=== PATIENT | female | born 1930 | race Native Hawaiian/Other Pacific Islander ===

== ENCOUNTER 2019-01-02 20:33 | Inpatient (IN) | payer OTHER, MEDICARE ==
[2019-01-02] MEDS ORDERED: IPRATROPIUM/ALBUTEROL 3 ML DEYVIAL ONE (20:52)
[2019-01-02] MEDS ORDERED: IPRATROPIUM/ALBUTEROL 3 ML DEYVIAL IH ONE (20:54)
[2019-01-02 21:59] LABS: PLATELET COUNT 196 10^3/uL (150-400)
[2019-01-02 22:07] LABS: INR 1.07 (0.83-1.16); PROTIME(PATIENT) 13.5 SEC (12.0-15.0)
--- NOTE | 2019-01-02 22:16 | EDPHY ---
H & P Time Seen by Provider: 01/02/19 20:58 HPI/ROS: HPI Short of breath. 88-year-old female by private vehicle with her daughter. This patient reports that for the last 5 days she has noticed worsening shortness of breath. She reports that this is worse with exertion. She has not had any associated chest pain. No cough. No upper respiratory symptoms. She has no history of asthma or reactive airway disease. No history of congestive heart failure. She denies any unilateral leg pain or swelling. She has not had a fever. No palpitations. ROS: Constitutional: No fever, no chills. No weakness. Eyes: No discharge. No changes in vision. ENT: No sore throat. No nasal congestion or rhinorrhea. Respiratory: No cough. As above. Cardiac: No chest pain, no palpitations. Gastrointestinal: No abdominal pain, no vomiting, no diarrhea. Genitourinary: No hematuria. No dysuria or increased frequency with urination. Musculoskeletal: No back pain. No neck pain. No myalgias or arthralgias. Skin: No rashes. Neurological: No headache. No focal weakness or altered sensation. Past medical history: Double mastectomy, hypertension, ischemic heart disease, pulmonary hypertension, mitral valve disease, gout. Social history: Nonsmoker. She is here with her daughter. She lives several houses down from her daughter. No alcohol. Physical Exam: General Appearance: Alert, she is not in distress. This patient is responding to questions appropriately and in full sentences. This patient appears well- hydrated and well-nourished. Eyes: Pupils equal and round no pallor or injection. No lid edema, erythema or injection. Respiratory: There are no retractions, lungs are clear to auscultation anteriorly, diminished at the bases, otherwise with good air movement bilaterally. No tachypnea. Cardiovascular: Regular rate and rhythm. No murmur appreciated. Gastrointestinal: Abdomen is soft and nontender, no masses, bowel sounds normal. No focal tenderness at McBurney's point. No Dyson sign. Neurological: Motor sensory function is grossly intact. Cranial nerves are normal. Gait is normal. Skin: Warm and dry, no rashes. Musculoskeletal: Neck is supple and nontender. Extremities are symmetrical. All joints range without pain or impingement. Psychiatric: No agitation. No depression. Database: EKG: EKG time is 9:12 p.m.; EKG shows a sinus rhythm with ventricular rate of 87. There is an underlying left bundle branch block with appropriate discordance. The OH, QRS, QT intervals are within normal limits. There are no ST-T wave changes indicative of ischemic or injury pattern. No evidence of right heart strain. Interpreted by me. Imaging: AP portable chest x-ray: Cardiomegaly which appears stable. No infiltrate. No pneumothorax. No acute cardiopulmonary disease process noted. Procedures: Emergency department course: Triage vital signs reviewed, she is mildly hypertensive. Vital signs are otherwise unremarkable. Pulse oximetry is 93% on room air in triage. She is afebrile. IV placed. She was placed on a registered nurse cardiac. EKG obtained and reviewed by myself. She was given a DuoNeb from triage. She felt better after this. She does not have significant wheezing. She does have diminished breath sounds at the bilateral bases and mid lung [place]. Strong family history of asthma. No personal history of reactive airway disease. 10:45 p.m., results of diagnostic workup discussed with the patient and her mother. I explained we would admit the patient overnight for observation by the hospitalist service. Her daughter currently does not feel comfortable taking her home. I explained to the 2 of them that her diagnostic workup has been reassuring. All of their questions were answered. 11:00 p.m., case discussed with hospitalist Dr. Alicia. Case discussed in detail with him. He accepts this patient for observation admission and further evaluation with the hospitalist service. The patient's remaining emergency department course under my care has been uneventful. She was admitted in stable condition. Differential Diagnosis: The differential diagnosis on this patient includes but is not limited to pulmonary hypertension, congestive heart failure, reactive airway disease, pulmonary embolism, acute coronary syndrome. This represents a partial list of diagnoses considered. These considerations are based on history, physical exam , past history, reassessment and diagnostic testing. Smoking Status: Former smoker Constitutional: Initial Vital Signs Temperature (C) 36.5 C 01/02/19 20:36 Heart Rate 97 01/02/19 20:36 Respiratory Rate 18 01/02/19 20:36 Blood Pressure 151/65 H 01/02/19 20:36 O2 Sat (%) 93 01/02/19 20:36 O2 Delivery Mode Nasal Cannula O2 (L/minute) 2 Allergies/Adverse Reactions: Penicillins Allergy (Severe, Verified 01/02/19 20:41) venom-honey bee [bee venom (honey bee)] Allergy (Severe, Verified 01/02/19 20:41 ) codeine Allergy (Verified 01/02/19 20:41) Home Medications: Medication Instructions Recorded Allopurinol [Allopurinol 100 MG 200 mg PO DAILY 02/23/12 (*)] Simvastatin [Zocor 10 mg] 10 mg PO HS 02/23/12 Aspirin [Aspirin 81mg (*)] 81 mg PO SUTUWETHSA@08 11/13/15 Herbals/Supplements -Info Only 1 ea PO DAILY 11/13/15 C/E/Zn/Cu/OM3/DHA/EPA/LUT/ZEAX 1 each PO DAILY 01/03/19 [Preservision Areds 2 Softgel] C/E/Zn/Cu/OM3/DHA/EPA/LUT/ZEAX 1 each PO MOWEFR@01/03/19 [Preservision Areds 2 Softgel] Carboxymethylcellulose 1% [Refresh 1 - 2 drop EACHEYE Q4H PRN 01/03/19 Celluvisc (*)] Ibuprofen [Motrin (*)] 200 - 400 mg PO Q8H PRN 01/03/19 Medical Decision Making - Data Points Laboratory Results: Laboratory Results 01/03/19 04:07 01/03/19 04:07 01/03/19 01/03/19 04:07 04:07 WBC 5.67 10^3/uL 10^3/uL (3.80-9.50) RBC 4.03 10^6/uL L 10^6/uL (4.18-5.33) Hgb 12.4 g/dL L g/dL (12.6-16.3) Hct 37.7 % L % (38.0-47.0) MCV 93.5 fL fL (81.5-99.8) MCH 30.8 pg pg (27.9-34.1) MCHC 32.9 g/dL g/dL (32.4-36.7) RDW 13.6 % % (11.5-15.2) Plt Count 166 10^3/uL 10^3/uL (150-400) MPV 9.3 fL fL (8.7-11.7) Neut % (Auto) 64.6 % % (39.3-74.2) Lymph % (Auto) 24.2 % % (15.0-45.0) [place] % (Auto) 8.3 % % (4.5-13.0) Eos % (Auto) 2.3 % % (0.6-7.6) Baso % (Auto) 0.2 % L % (0.3-1.7) Nucleat RBC Rel Count 0.0 % % (0.0-0.2) Absolute Neuts (auto) 3.67 10^3/uL 10^3/uL (1.70-6.50) Absolute Lymphs (auto) 1.37 10^3/uL 10^3/uL (1.00-3.00) Absolute Monos (auto) 0.47 10^3/uL 10^3/uL (0.30-0.80) Absolute Eos (auto) 0.13 10^3/uL 10^3/uL (0.03-0.40) Absolute Basos (auto) 0.01 10^3/uL L 10^3/uL (0.02-0.10) Absolute Nucleated RBC 0.00 10^3/uL 10^3/uL (0-0.01) Immature Gran % 0.4 % % (0.0-1.1) Immature Gran # 0.02 10^3/uL 10^3/uL (0.00-0.10) Sodium 139 mEq/L mEq/L (135-145) Potassium 3.5 mEq/L mEq/L (3.5-5.2) Chloride 111 mEq/L H mEq/L (97-110) Carbon Dioxide 23 mEq/l mEq/l (22-31) Anion Gap 5 mEq/L L mEq/L (6-14) BUN 16 mg/dL mg/dL (7-23) Creatinine 0.5 mg/dL L mg/dL (0.6-1.0) Estimated GFR > 60 Glucose 90 mg/dL mg/dL (70-100) Calcium 8.3 mg/dL L mg/dL (8.5-10.4) Medications Given: Enoxaparin Sodium (Lovenox) 30 mg SC DAILY JASON Stop: 07/02/19 08:59 Last Admin: 01/03/19 09:36 Dose: 30 mg Discontinued Medications Albuterol/Ipratropium (Duoneb) 3 ml IH EDNOW ONE Stop: 01/02/19 20:55 Last Admin: 01/02/19 20:55 Dose: 3 ml Furosemide (Lasix Injection) 20 mg IVP ONCE ONE Stop: 01/03/19 13:11 Last Admin: 01/03/19 15:05 Dose: 20 mg Point of Care Test Results: Chemistry 01/02/19 21:53 POC Troponin I 0.02 ng/mL ng/mL (0.00-0.08) Departure - Departure Disposition: [facility] Inpatient Acute Clinical Impression: Dyspnea
[2019-01-02] MEDS ORDERED: ONDANSETRON 4 MG/2 ML VIAL IVP PRN (22:59)
[2019-01-02] MEDS ORDERED: ONDANSETRON DISINTEGRATING 4 MG TAB PO PRN (22:59)
[2019-01-02] MEDS ORDERED: ALBUTEROL 3 ML DEYVIAL IH PRN (22:59)
--- NOTE | 2019-01-03 00:01 | PDGENHP ---
History and Physical - Chief Complaint Dyspnea - History of Present Illness 88 yo F w/ hx of gout presents with dyspnea. The patient tells me she "always wheezes" but that this usually does not affect her ability to exercise. A few weeks ago she had a fairly significant cold. These symptoms have improved but over the last 4 or 5 days she has noted significant dyspnea on exertion, even with mild exertion such as putting on he shoes. She denies chest pain. She tells me she feels much better after nebulizer treatment received in the ED. Work-up in the ED mostly unremarkable including D-dimer negative by age adjusted cutoff. She is being admitted for observation. Case discussed with ED physician Dr. Stacy; records reviewed and summarized above. History Information - Allergies/Home Medication List Allergies/Adverse Reactions: Penicillins Allergy (Severe, Verified 01/02/19 20:41) venom-honey bee [bee venom (honey bee)] Allergy (Severe, Verified 01/02/19 20:41 ) codeine Allergy (Verified 01/02/19 20:41) Home Medications: Allopurinol [Allopurinol 100 MG (*)] 200 mg PO DAILY 02/23/12 [Last Taken Unknown] Simvastatin [Zocor 10 mg] 10 mg PO DAILY 02/23/12 [Last Taken Unknown] Aspirin [Aspirin 81mg (*)] 81 mg PO SUMOWEFR@11/13/15 [Last Taken 11/20/15] Cholecalciferol (Vitamin D3) [Vitamin D3] 5,000 unit PO DAILY 11/13/15 [Last Taken 11/20/15] Herbals/Supplements -Info Only 1 ea PO DAILY 11/13/15 [Last Taken 11/20/15] Multivitamins [Multivitamin (*)] 1 each PO DAILY 11/13/15 [Last Taken 11/20/15] Tears/Hypromellose [Natural Balance] 1 - 2 drops EACHEYE Q4 PRN 11/13/15 [Last Taken 11/27/15] Vit C/Dl-E AC/Lut/Copper/Znox [Preservision Softgel] 1 each PO MOTH@11/13/15 [Last Taken 11/20/15] I have personally reviewed and updated: family history, medical history - Past Medical History hyperlipidemia Additional medical history: Gout. DCIS - Surgical History Additional surgical history: Lumpectomy - Family History Positive for: asthma (Daughter and granddaughters) - Social History Smoking Status: Former smoker Review of Systems Review of Systems: ROS: 10pt was reviewed & negative except for what was stated in HPI & below Physical Exam Physical Exam: Temp Pulse Resp BP Pulse Ox 36.5 C 86 16 126/53 H 96 01/02/19 20:36 01/02/19 22:58 01/02/19 22:58 01/02/19 22:58 01/02/19 23:00 O2 (L/minute) 2 Constitutional: no apparent distress, not in pain Eyes: PERRL, EOMI Ears, Nose, Mouth, Throat: moist mucous membranes, no oral mucosal ulcers Cardiovascular: regular rate and rhythym, no murmur, rub, or gallop Respiratory: no respiratory distress, no rales or rhonchi Gastrointestinal: normoactive bowel sounds, soft, non-tender abdomen Skin: warm, normal color Musculoskeletal: full muscle strength, no muscle tenderness Neurologic: AAOx3, CN II-XII Intact Psychiatric: interacting appropriately, not anxious Lab Data & Imaging Review 01/02/19 21:48 01/02/19 21:48 WBC 8.04 10^3/uL (3.80-9.50) 01/02/19 21:48 RBC 4.51 10^6/uL (4.18-5.33) 01/02/19 21:48 Hgb 14.3 g/dL (12.6-16.3) 01/02/19 21:48 Hct 43.3 % (38.0-47.0) 01/02/19 21:48 MCV 96.0 fL (81.5-99.8) 01/02/19 21:48 MCH 31.7 pg (27.9-34.1) 01/02/19 21:48 MCHC 33.0 g/dL (32.4-36.7) 01/02/19 21:48 RDW 13.5 % (11.5-15.2) 01/02/19 21:48 Plt Count 196 10^3/uL (150-400) 01/02/19 21:48 MPV 9.6 fL (8.7-11.7) 01/02/19 21:48 Neut % (Auto) 67.4 % (39.3-74.2) 01/02/19 21:48 Lymph % (Auto) 24.9 % (15.0-45.0) 01/02/19 21:48 [place] % (Auto) 6.2 % (4.5-13.0) 01/02/19 21:48 Eos % (Auto) 1.2 % (0.6-7.6) 01/02/19 21:48 Baso % (Auto) 0.1 % (0.3-1.7) L 01/02/19 21:48 Nucleat RBC Rel Count 0.0 % (0.0-0.2) 01/02/19 21:48 Absolute Neuts (auto) 5.41 10^3/uL (1.70-6.50) 01/02/19 21:48 Absolute Lymphs (auto) 2.00 10^3/uL (1.00-3.00) 01/02/19 21:48 Absolute Monos (auto) 0.50 10^3/uL (0.30-0.80) 01/02/19 21:48 Absolute Eos (auto) 0.10 10^3/uL (0.03-0.40) 01/02/19 21:48 Absolute Basos (auto) 0.01 10^3/uL (0.02-0.10) L 01/02/19 21:48 Absolute Nucleated RBC 0.00 10^3/uL (0-0.01) 01/02/19 21:48 Immature Gran % 0.2 % (0.0-1.1) 01/02/19 21:48 Immature Gran # 0.02 10^3/uL (0.00-0.10) 01/02/19 21:48 PT 13.5 SEC (12.0-15.0) 01/02/19 21:48 INR 1.07 (0.83-1.16) 01/02/19 21:48 APTT 30.1 SEC (23.0-38.0) 01/02/19 21:48 D-Dimer 0.65 ug/mLFEU (0.00-0.50) H 01/02/19 21:48 Sodium 139 mEq/L (135-145) 01/02/19 21:48 Potassium 3.4 mEq/L (3.5-5.2) L 01/02/19 21:48 Chloride 107 mEq/L (97-110) 01/02/19 21:48 Carbon Dioxide 23 mEq/l (22-31) 01/02/19 21:48 Anion Gap 9 mEq/L (6-14) 01/02/19 21:48 BUN 16 mg/dL (7-23) 01/02/19 21:48 Creatinine 0.6 mg/dL (0.6-1.0) 01/02/19 21:48 Estimated GFR > 60 01/02/19 21:48 Glucose 140 mg/dL (70-100) H 01/02/19 21:48 Calcium 8.9 mg/dL (8.5-10.4) 01/02/19 21:48 POC Troponin I 0.02 ng/mL (0.00-0.08) 01/02/19 21:53 NT-Pro-B Natriuret Pep 7610 pg/mL (0-450) H 01/02/19 21:48 Imaging Review: Imaging Impressions Chest X-Ray 01/02/19 20:59 Impression: 1. Mild cardiomegaly. Assessment & Plan Assessment: 88 yo F w/ hx of gout and HLD presents with dyspnea. Plan: 1. Dyspnea - Present for several days after recent cold. I suspect she may have some mild, underlying asthma and that has flared after recent URI. She reports improvement after nebulizer treatment and her daughter and grandchildren all have asthma. D-dimer negative per age adjusted cutoff. - Admit for observation - Albuterol PRN - Will check TTE noting elevated BNP although she does not appear volume overloaded - Recommend PFTs with PCP after discharge 2. Gout - Continue allopurinol 3. HLD - Continue statin Diet - Regular Code - Full Ppx - LMWH Dispo - Admit under observation status
[2019-01-03 04:22] LABS: PLATELET COUNT 166 10^3/uL (150-400)
[2019-01-03] MEDS ORDERED: ENOXAPARIN 30 MG/0.3 ML SYR SC SCH (09:00)
--- NOTE | 2019-01-03 10:08 | ECHO ---
[email or web address] [address] [address] Main: [phone] Echocardiography Examination Transthoracic Name: TYRONE PINEDA MR#: [id number] Study Date: 01/03/2019 Study Time: 07:41 AM Date of : 1930 Age: 88 year(s) Height: 137.2 cm (54 in.) Weight: 61.24 kg (135 lb.) BSA: 1.46 m2 Gender: Female Examination: Echo Contrast: Image Quality: Adequate Rhythm: Heart Rate: 89 bpm BP: 157 mmHg/83 mmHg Indication: Dyspnea on exertion Procedure Staff Referring Physician: Customs Entry Writer: Anita Torres [facility] Reading Physician: Ti Su MD Requesting Provider: Indication: Dyspnea on exertion Measurements Chambers AV/MV Label Value Normal Value Label Value Normal Value EF lower range (%) 25 % AR PHT 0.35 s EF upper range (%) 30 % AR PHT 347 ms IVSd, 2D 0.7 cm (0.6cm - 1.1cm) AR Vena contracta 0.4 cm LVDd, 2D 4.9 cm (3.9cm - 5.3cm) AR Vmax 3.99 m/s LVDs, 2D 4.4 cm (2.1cm - 4cm) AV PGmax 8 mmHg LVEF, 2D 22 % (54% - 74%) AV Vmax 1.42 m/s LVEF, BP 28 % (55% - 70%) MR (ERO) 0.17 cm2 LVOT PGmean 1 mmHg MR PISA Alias V. 31.9 cm/s LVOT Vmean 0.51 m/s MR PISA Radius 0.7 cm LVOTd 1.7 cm (1.8cm - 2cm) MR Reg. Fraction 21 % LVPWd, 2D 0.9 cm MR Reg. Volume 35 ml RVDd, 2D 3 cm (1.9cm - 3.8cm) MR Vena Contracta 0.6 cm TAPSE 2.2 cm MR Vmax 5.68 m/s LA Volume, BP 66 ml (22ml - 52ml) MR VTI 205 cm LADs, 2D 3.5 cm (2.7cm - 3.8cm) MV A Vmax 1.35 m/s LAESV index, BP 45.2 ml/m2 MV Elizabeth 3.6 cm RA Area 15.5 cm2 MV E' lateral 0.08 m/s Additional Vessels MV E Vmax 1.18 m/s Label Value Normal Value MV E/A 0.87 AoAsc 2.7 cm MV E/E' lateral 15.1 Patient: TYRONE PINEDA Study Date: 01/03/2019 Page 1 of 3 07:41 AM AoRoot, 2D 2.7 cm (1.4cm - 2.6cm) MV PGmax 6 mmHg MV PGmean 3 mmHg MV VTI 16.3 cm MVA D (continuity eq.) 2.1 cm2 TV/PV Label Value Normal Value RA Pressure 15 mmHg RVSP 78 mmHg TR Pmax 63 mmHg TR Vmax 3.98 m/s MN End briscoe Marcelo 1.19 cm/s PV PGmax 5 mmHg PV Vmax, Caliper 1.09 m/s (0.6m/s - 0.9m/s) Conclusions The rhythm appears to be sinus rhythm. Left ventricle is normal in size however globular in appearance. The ejection fraction is severely reduced estimated at 25-30% and calculated at 20 8% by Alexander's. There is severe global left ventricular hypokinesis without regional wall motion abnormalities. Left ventricular free wall thickness is normal. Grade 2 diastolic dysfunction is present. The left atrium is dlkx-uv-ycpnbfvtht dilated. There is an abnormal color flow jet crossing the interatrial septum from left to right consistent with a small atrial septal defect. The interatrial septum bows to the right suggesting elevated left atrial pressures. The right atrial and right ventricular dimensions are normal. Trileaflet aortic valve with mild aortic regurgitation. The mitral leaflet coaptation point is apically displaced. There is severe central mitral regurgitation likely functional in nature. There is no mitral stenosis. Done tricuspid valve is normal in appearance with moderate tricuspid regurgitation and severely elevated estimated RVSP at 78 mmHg. Moderate pulmonic insufficiency is present. Dilated IVC. No prior studies. Left Atrium: The left atrium is mildly to moderately dilated. Right Atrium: The right atrium is normal in size. Mitral Valve: Severe mitral regurgitation. Findings Left Ventricle: Left ventricle is normal in size. Moderately to severely reduced systolic LV function. EF evaluated by EF (biplane Alexander's). The ejection fraction, measured by Simpsons method, is 28 %. EF range is estimated at 25 % - 30 %. Left ventricle wall thickness is normal. Global hypokinesis. Grade II Diastolic Dysfunction. Right Ventricle: Normal size right ventricle. Right ventricular systolic function is normal. Left Atrium: The left atrium is mildly to moderately dilated. IAS: Small left to right shunt across the interatrial septum noted with color flow Doppler. Right Atrium: The right atrium is normal in size. Mitral Valve: Severe mitral regurgitation. No mitral valve stenosis. There is mild mitral thickening. Aortic Valve: The aortic valve is structurally normal and trileaflet. Mild aortic regurgitation is present. There is no aortic stenosis. Patient: TYRONE PINEDA Study Date: 01/03/2019 Page 2 of 3 07:41 AM Tricuspid Valve: Tricuspid valve leaflets are structurally normal. Moderate tricuspid regurgitation. Right Ventricular systolic pressure is measured at 78 mmHg. Pulmonary artery pressure severely increased. Pulmonic Valve: Pulmonic valve is poorly visualized. Moderate pulmonic valve regurgitation is present. Aorta: The aortic root size in 2D measures 2.7 cm. The aortic root exhibits normal size. The ascending aorta measures 2.7 cm. Ascending aorta is normal in size. Aorta Measurements AoRoot, 2D is 2.7 cm. IVC: The inferior vena cava is dilated. The respirophasic change in diameter is less than 50%. Pericardium: No pericardial effusion. Exam Details Procedure Ordered: Echo Procedure Status: Routine study Image Quality: Adequate Facility Location: Cardiac Echo 1 (No Signature Object) Patient: TYRONE PINEDA Study Date: 01/03/2019 Page 3 of 3 07:41 AM [id number]
--- NOTE | 2019-01-03 10:43 | ASMTCMCOM ---
CM Note CM Note Notes: Pt is a 88 y/o female admitted for dyspnea. OT has been ordered and awaiting recommendations. Needs are TBD at this time. CM to follow. Plan: TBD Date Signed: 01/03/2019 10:42 AM Electronically Signed By:JULIA Altman
[2019-01-03] MEDS ORDERED: FUROSEMIDE 20 MG/2 ML VIAL IVP ONE (13:10)
--- NOTE | 2019-01-03 14:37 | HOSPPROG ---
Hospitalist Progress Note Assessment/Plan: 88 year old female with pmh of gout here with acute hypoxia, found to have LVEF of 25% severe mitral regurge and RVSP of 78 Hypoxia- likely secondary to CHF and pulmonary HTN. BNP over 7k on admit. Sounds mildly wheezy on examination so there may be some element of RAD/COPD as well. Chest x-ray with cardiomegaly. TTE echo today showed global hypokinesis and LVEF of 25-30% with RVSP of 78. No evidence of underlying URI. -albuterol PRN -trial dose of lasix IV 20mg X1 Acute systolic CHF-not likely ischemic cardiomyopathy given global hypokinesis. BNP elevated, on admission, with hypoxia but no JVD and minimal edema. echo this afternoon with reduced LVEF of 25-30%,severe mitral regurge, and elevated RVSP suggestive of underlying PTHN. -lasix -start joseph, bb, aldactone as able -cards to see in am Pulmonary Hypertension- RVSP of 78, (Tricuspid regurge velocity of 3.98) suggestive of PTHN. no hx of MAUREEN, PE, COPD or PHTN. LHD is likely etiology. Cardiology will consult with patient tomorrow to further assess. Gout - Continue allopurinol HLD - Continue statin Diet - Regular Code - Full Ppx - LMWH Dispo - Change to inpatient for further eval and treatment of Acute CHF. Subjective: still short of breath. no cough. no other complaints. Objective: Vital Signs Temp Pulse Resp BP Pulse Ox 37.0 C 78 20 154/74 H 97 01/03/19 11:28 01/03/19 11:28 01/03/19 11:28 01/03/19 11:28 01/03/19 13:34 Laboratory Results 01/03/19 04:07 01/03/19 04:07 01/02/19 01/03/19 01/04/19 05:59 05:59 05:59 Intake Total 50 Output Total 175 150 Balance -125 -150 PT 13.5 SEC (12.0-15.0) 01/02/19 21:48 INR 1.07 (0.83-1.16) 01/02/19 21:48 - Physical Exam Constitutional: no apparent distress, appears nourished, not in pain Eyes: PERRL, anicteric sclera, EOMI Ears, Nose, Mouth, Throat: moist mucous membranes, hearing normal, ears appear normal, no oral mucosal ulcers Cardiovascular: regular rate and rhythym, no murmur, rub, or gallop Respiratory: expiratory wheeze Gastrointestinal: normoactive bowel sounds, soft, non-tender abdomen, no palpable masses Genitourinary: no bladder fullness, no bladder tenderness, no renal bruits Skin: no rashes or abrasions, no fluctuance, no induration Musculoskeletal: full muscle strength, no muscle tenderness, normal joint ROM Neurologic: AAOx3, sensation intact bilaterally Psychiatric: interacting appropriately, not anxious, not encephalopathic, thought process linear Lymph, Heme, Immunologic: no cervical LAD, no supraclavicular LAD ICD10 Worksheet Patient Problems: Problems Problem Status Onset Dyspnea Acute
--- NOTE | 2019-01-03 15:43 | PDMN ---
Medical Necessity Medical necessity: Pt meets IP criteria as of 01/03 per MD and MCG M-190 (Heart Faillure); est los > 2 mn for ongoing tx and management of acute CHF with hypoxia, elevated BNP, pulmonary HTN and severe mitral regurgitation noted on echo; requiring cardiac monitoring, IV diuretics, serial labs, cardiology consultation and further workup. Hx gout, hyperlipidemia, DCIS.
[2019-01-03] MEDS: ACETAMINOPHEN 325 MG TAB PO PRN (21:07)
[2019-01-04 04:15] LABS: PLATELET COUNT 170 10^3/uL (150-400)
[2019-01-04] MEDS ORDERED: TEMAZEPAM 15 MG CAP PO PRN (10:46)
[2019-01-04] MEDS ORDERED: ASPIRIN EC 325 MG TAB PO ONE (10:46)
[2019-01-04] MEDS ORDERED: DIAZEPAM 5 MG TAB PO ONE (10:46)
[2019-01-04] MEDS ORDERED: FAMOTIDINE 20 MG TAB PO ONE (10:46)
[2019-01-04] MEDS ORDERED: diphenhydrAMINE 25 MG CAP PO ONE (10:46)
[2019-01-04] MEDS ORDERED: NS 1,000 ML IV SCH (11:00)
[2019-01-04] MEDS ORDERED: fentaNYL 100 MCG/2 ML INJ ONE (11:06)
[2019-01-04] MEDS ORDERED: LIDOCAINE 1% 300 MG/30 ML SDV ONE (11:06)
[2019-01-04] MEDS ORDERED: MIDAZOLAM 2 MG/2 ML VIAL ONE (11:07)
[2019-01-04] MEDS ORDERED: IOPAMIDOL (ISOVUE-370) 150 ML BTL IV ONE (11:07)
--- NOTE | 2019-01-04 11:22 | PDPROPOC ---
Sedation Plan of Care Sedation Plan of Care: vital signs stable, mental status noted, patient educated of risks, benefits, alternatives, patient can tolerate sedation ASA Classification: ASA 2 Planned drugs: fentanyl, midazolam Mallampati Score: Class 2 Mallampati Reference Image: Patient passed 3-3-2 rule?: Yes
--- NOTE | 2019-01-04 11:23 | PDHPUP ---
History & Physical Update H&P update statement: This history and physical update is based on an assessment of the patient which was completed after admission or registration (within 24 hours), but prior to the surgery/procedure. NOTE: my H&P is currently in dictation. NO changes since dictation completed wihin the hour. H&P update: H&P reviewed & patient examined, no change in patient's condition since H&P completed
--- NOTE | 2019-01-04 12:03 | GCON ---
[f rep st] CONSULTATION CARDIOLOGY CONSULTATION DATE OF CONSULTATION: 01/04/2019 INDICATION FOR CONSULTATION: One-week history of dyspnea on exertion and shortness of breath coupled with echocardiogram demonstrating severe global hypokinesis with LVEF of 25% to 30% coupled with sev ere mitral regurgitation and severe pulmonary hypertension with RV systolic pressure of 78. 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 She states that she is typically able to walk around the park, but found herself struggling, and states she was barely able to get home last w [place] secondary to symptoms of dyspnea. She denies any associated chest pain or chest pressure. She h as no complaints of palpitations, near syncope, or syncope. Over the course of the week, she continued to experience exertional shortness of breath and dyspnea w ith walking through her house. At the urging of her daughter and son-in-law Friday evening who fou nd her to be short of breath with speaking while out to dinner, she presented to [facility] for further evaluation. Initial evaluation demonstrated an elevated BNP of 7610. She subsequently underwent complete 2D echocardiogram demonstrating mildly dilated left ventricular c avity with severe global hypokinesis with EF of 25% to 30% with mild to moderate left atrial enlargem ent, evidence of patent foraminal ovale, severe central jet of MR consistent with functional MR, some moderate tricuspid regurgitation and RV systolic pressure of 78, and evidence of dilated IVC consist ent with elevated right atrial pressure. No evidence of pericardial effusion. Currently at the time of my exam, she is resting comfortably. She does admit to symptoms of shortnes s of breath and dyspnea. She denies any complaints of chest pain, chest pressure, palpitations, dizz iness, lightheadedness, near syncope, or syncope. She has no complaints of PND or orthopnea. She ac s no complaints of lower extremity edema. She does notice some new increase in abdominal fullness an d bloating. She denies any weight gain. PAST MEDICAL HISTORY: As outlined above. MEDICATIONS ON ADMISSION: Include allopurinol 200 mg daily, aspirin 81 mg daily, ibuprofen 200 mg da connie, simvastatin 10 mg daily, and herbal supplements. ALLERGIES: Penicillin, bee venom, and codeine. SOCIAL HISTORY: The patient is a . Her several years ago. She lives next door to her daughter here in [place]. She smoked in college while at [employer], but did not smoke afterw ards. She does not drink significant quantities of alcohol. She does exercise regularly. FAMILY HISTORY: No family history of premature coronary artery disease. PHYSICAL EXAMINATION: VITAL SIGNS: Blood pressure 154/76, heart rate 68 in sinus rhythm. Oxygen sa turation 98% on 2 L nasal cannula. Respiratory rate of 16. GENERAL: She is awake, alert, oriented, appropriate. No apparent distress. HEAD AND NECK: There is no evidence of JVP or carotid bruit. LUNGS: Clear to auscultation bilaterally. CARDIAC: S1, S2. There is a 2/6 audible systolic murmur at the apex. No rubs or gallops. ABDOMEN: Soft, nontender, nondistended. There is no pulsatile m ass or abdominal bruit. No evidence of shifting dullness. EXTREMITIES: There is no evidence of cya nosis or clubbing. There is a trace nonpitting ankle edema. DATA: Hemoglobin of 12.9, hematocrit 39.1. INR 1.07. Sodium 139, potassium 3.4, BUN 17, creatinine 0.6, N-terminal BNP 7610. Chest x-ray demonstrates mild cardiomegaly with no evidence of failure. ECG demonstrates sinus rhyth m at 87 beats per minute with left bundle branch block. IMPRESSION: 1. New onset of severe global systolic heart failure with left ventricular ejection fraction of 25% to 30%. 2. Severe central jet of mitral regurgitation. 3. Severe pulmonary hypertension. 4. Moderate pulmonary insufficiency. SUMMARY: The patient is a pleasant, physically active 88-year-old female with a 1-week history of sy mptoms. Of note, she did have an upper respiratory infection without fever approximately 4-5 weeks p rior to her onset of symptoms. Risk factors for heart disease include smoking history and history of hyperlipidemia. She is followed by Dr. Veronica Moya. She did undergo an echocardiogram last year. T hose results are not available to me at this time. Her ECG also demonstrates left bundle branch bloc k, no previous ECG for comparison. We will contact Dr. Moya's office to obtain records from [facility]. Risks and benefits of left heart catheterization were discussed with the patient. She did have an ep isode of double vision that lasted for approximately 6 months after a previous left heart catheteriza tion in 2004. We did discuss that there certainly was a risk for stroke or embolic events with left heart catheterization. In the setting of new onset of heart failure of unclear etiology, I have recommended left and right h eart catheterization. Risks and benefits have been discussed in detail. I have also contacted her marek pinto who is a irrigation worker. She is in congruence with the plan to pursue left heart catheterizati on. PLAN: Left and right heart catheterization to be performed this morning. Further management pending the results of left heart catheterization. /[id number]/MODL
[2019-01-04] MEDS ORDERED: ATROPINE SULFATE 1 MG/10 ML SYR IVP PRN (12:45)
--- NOTE | 2019-01-04 14:09 | CPIP ---
[f rep st] INVASIVE CARDIAC PROCEDURE DATE OF PROCEDURE: 01/04/2019 PROCEDURE PERFORMED: Left and right heart catheterization. INDICATION FOR PROCEDURE: New onset of systolic congestive heart failure with echo demonstrating LVE F of 25% to 30%. DESCRIPTION OF PROCEDURE: After informed consent was obtained for left and right heart catheterizati on, as well as possible percutaneous coronary intervention, the patient was brought to the cardiac ca theterization lab where she was prepped and draped in a sterile fashion. Using 1% lidocaine, the [facility] groin was anesthetized. Using the micropuncture and modified Seldinger technique, a [place] catheter was placed into the [facility] common femoral artery without complications. Using the modified Seldinger technique, a 7[place] catheter was placed into the right common femoral vein without complications. [place]-Rebecca catheter was used to measure pulmonary capillary wedge pressure, pulmonary artery pressure, pulmonary artery oxygen saturation, right ventricular pressure, right ventricular saturation, right atrial pressure, and right atrial saturations. [place]-Rebecca catheter was removed without complications. Left heart catheterization was performed using JL-4 catheter. JL4 catheter was used to take images o f the left coronary anatomy in multiple views. JL4 catheter was exchanged over a guidewire for a JR4 catheter. JR4 catheter was used to take images of the right coronary artery in multiple projections . JR4 catheter was exchanged over a guidewire for angled pigtail catheter. Angled pigtail catheter was used to cross the aortic valve. LVEDP was assessed left ventriculogram was performed. Aortic va lve gradient was assessed on pull-back. Angled pigtail catheter was removed over guidewire without c omplications. Right common femoral artery angiography was obtained demonstrating appropriate placeme nt of the 6[place] arterial catheter. FINDINGS: 1. Right heart catheterization findings: Pulmonary capillary wedge pressure 16 mmHg. Pulmonary art agustin pressure 45/21 with a mean of 31. RV pressure 46/7 with a RV end-diastolic pressure of 16. Righ t atrial pressure mean of 11 mmHg. Aortic pressure 153/59. Cardiac output 3.70 L/minute. Cardiac i ndex 2.55 L/minute per sq m. Aortic pressure of 147/59. 2. Left heart catheterization findings: a. Left main normal size and caliber bifurcates into left anterior descending and left circumflex co ronary artery. There is no evidence of coronary disease in the left main. b. Left anterior descending: Left anterior descending is a large caliber vessel. There is no evide nce of coronary disease. There is no evidence of coronary disease within the diagonal branches or se ptal perforators. c. Left circumflex is a codominant vessel. There is no evidence of coronary disease within the circ umflex or obtuse marginal branches. d. Right coronary artery is a codominant vessel. There is no evidence of coronary disease within th e right coronary artery. HEMODYNAMICS: LVEF 35 to 40 on left ventriculogram. LVEDP 19 mmHg. Aortic depth of 30 mmHg. CONCLUSION: 1. Nonischemic cardiomyopathy. 2. Normal coronary arteries. 3. Upmy-ny-eycreceo pulmonary hypertension. Angio-Seal was applied without complication. Results have been discussed with patient. We will plan for optimizing medical management in the sett ing of nonischemic cardiomyopathy. /[id number]/MODL
--- NOTE | 2019-01-04 15:08 | HOSPPROG ---
Hospitalist Progress Note Assessment/Plan: 88 yo F w dilated CMP, MR sCHF: new finding non ischemic start carvedilol, daily lasix checkl tsh MR: per echo report, appears to be related to LV as opposed to valve itself will verify w cardiology asthma: continue home meds proph: lmwh code: dnr dispo: inpt Subjective: case d/w dr juárez. clean coronaries Objective: Vital Signs Temp Pulse Resp BP Pulse Ox 36.7 C 68 16 154/76 H 98 01/04/19 07:43 01/04/19 07:43 01/04/19 07:43 01/04/19 07:43 01/04/19 07:43 Laboratory Results 01/04/19 03:50 01/04/19 03:50 01/03/19 01/04/19 01/05/19 05:59 05:59 05:59 Intake Total 540 150 Output Total 2350 Balance -1810 150 PT 13.5 SEC (12.0-15.0) 01/02/19 21:48 INR 1.07 (0.83-1.16) 01/02/19 21:48 - Physical Exam Constitutional: no apparent distress, appears nourished Eyes: PERRL, anicteric sclera Ears, Nose, Mouth, Throat: moist mucous membranes, hearing normal Cardiovascular: regular rate and rhythym, systolic murmur, edema Respiratory: no respiratory distress, no rales or rhonchi Gastrointestinal: normoactive bowel sounds, soft, non-tender abdomen Genitourinary: no bladder fullness, No boewns in urethra Skin: warm, normal color Musculoskeletal: full muscle strength Neurologic: AAOx3 ICD10 Worksheet Patient Problems: Problems Problem Status Onset Chronic Disease Mgmt/Transitional Care Acute Dyspnea Acute
[2019-01-04] MEDS: ACETAMINOPHEN 325 MG TAB PO PRN ×2 (15:17→22:37)
[2019-01-04] MEDS ORDERED: FUROSEMIDE 20 MG TAB PO ONE (16:54)
[2019-01-04] MEDS: POTASSIUM CL 20 MEQ/15 ML UDCUP PO SCH (17:26)
[2019-01-04] MEDS: CARVEDILOL 3.125 MG TAB PO SCH (17:26)
[2019-01-04] MEDS ORDERED: PRAVASTATIN SODIUM 20 MG TAB PO SCH (21:00)
[2019-01-05] MEDS ORDERED: FUROSEMIDE 20 MG TAB PO SCH (09:00)
[2019-01-05] MEDS: POTASSIUM CL 20 MEQ/15 ML UDCUP PO SCH (10:14)
[2019-01-05] MEDS: CARVEDILOL 3.125 MG TAB PO SCH (10:14)
[2019-01-05 11:19] VITALS: BP 147/87
--- NOTE | 2019-01-05 11:51 | PDCARPN ---
Cardiology Progress Note Assessment/Plan: Assessment: 1. Nonischemic cardiomyopathy with LVEF of 25-30% on echocardiogram from January 02 2019 2. Severe mitral regurgitation 3. Eeex-os-hflevtwb pulmonary hypertension with RV systolic pressure 46 mm of mercury on right heart catheterization 4. Left bundle branch block 5. Hyperlipidemia Summary: 88-year-old female with nonischemic cardiomyopathy with angiographically normal coronary arteries on left heart catheterization yesterday. Right heart catheterization demonstrated pulmonary capillary wedge pressure 16 mm of mercury in RV systolic pressure 46 mm of mercury. She has responded well to diuretic therapy. Will plan to gradually titrate heart failure medications. She will be discharged home on Coreg 3.125 mg p.o. B.i.d. , lisinopril 2.5 mg once daily, Lasix 20 mg daily and potassium chloride 20 mEq daily. I think she can discontinue aspirin in the setting of angiographically normal coronary arteries. Would continue current dose of simvastatin. Recommend she obtain blood pressure cuff and check blood pressure daily at home. Recommend she monitor daily weights at home. Will plan for regular, follow-up visits with me as we gradually titrate heart failure medications. Post left heart catheterization instructions discussed in detail with patient and her daughters. Plan: Coreg 3.125 mg p.o. B.i.d. Lisinopril 2.5 mg once daily Lasix 20 mg once daily Potassium chloride 20 mEq once daily Continue current dose of simvastatin Discontinue aspirin Check daily weights Check blood pressure twice daily Follow-up with me on Friday01/08/2019 at 2:00 p.m. In the [place] office at [facility]. 01/05/19 11:52 Subjective: Mrs. Siu is feeling well today. Symptoms of shortness of breath have markedly improved. Edema has improved. Right groin site without hematoma or ecchymosis. Nontender to palpation. Distal pulses intact. She is hemodynamically stable. Telemetry demonstrates normal sinus rhythm with underlying left bundle branch block with occasional premature beats. Of note, she did have 1 episode of symptomatic hypotension last evening after receiving evening dose of Coreg and Lasix. Currently she denies complaints of shortness of breath, dyspnea, PND, orthopnea. No complaints of palpitations, dizziness, lightheadedness, near syncope or syncope. Her weight is down 2.5 kg from admission. Potassium 3.8. She is currently on potassium 20 mEq p.o. Daily Time Spent with Patient: greater than 35 minutes (Greater than 35 min spent reviewing cardiac catheterization results, heart failure medications and monitoring) Time Spent with Patient: Greater than 35 minutes spent on this patients care, greater than 50% of time spent counseling, educating, and coordinating care regarding the above mentioned plan. Objective: Vital Signs (8 Hrs) Temp Pulse Resp BP Pulse Ox 01/05/19 11:18 36.6 C 76 18 147/87 H 91 L 01/05/19 10:14 64 141/69 H 01/05/19 07:21 36.8 C 56 L 20 151/66 H 98 01/05/19 04:00 36.6 C 64 15 124/69 H 93 Intake/Output (24 Hrs) 01/04/19 01/05/19 01/06/19 05:59 05:59 05:59 Intake Total 540 500 Output Total 2350 400 200 Balance -1810 100 -200 Intake: Oral (ml) 540 350 IV Intake (ml) 150 Output: Urine (ml) 2350 400 200 Bedside Commode 2350 Toilet 400 200 Other: Weight 58.196 kg 57.561 kg Intake Quantity Yes Sufficient Number of Voids Bedside Commode 1 Result Diagrams: 01/04/19 03:50 01/05/19 04:00 - Physical Exam Constitutional: no apparent distress Ears, Nose, Mouth, Throat: moist mucous membranes Cardiovascular: regular rate and rhythm, systolic murmur Peripheral Pulses: 2+: carotid (R), carotid (L) Respiratory: clear to auscultate bilat, no crackles, no wheezes Gastrointestinal: no tenderness Musculoskeletal: no muscular tenderness Neurologic: AAOx3, CN II-XII grossly intact Psychiatric: cooperative, interactive, following commands ICD10 Worksheet Patient Problems: Problems Problem Status Onset Chronic Disease Mgmt/Transitional Care Acute Dyspnea Acute
--- NOTE | 2019-01-05 12:01 | PDHOMEO2F ---
Home Oxygen Face to Face Home Orders: I certify that a physician or a nurse practitioner or physician's school health assistant has had a [id number] encounter with this patient on the date of this order due to the diagnosis listed, which relates to the primary reason the patient requires home oxygen. Alternative treatments have been tried, or considered, and deemed ineffective. It is anticipated that supplemental oxygen will result in improvement with treatment. Home oxygen qualifying diagnosis: chronic CHF Home oxygen secondary diagnosis: pulmonary hypertension SpO2 on room air (%): 85 Frequency of home oxygen needed: continuous Home oxygen liters per minute: 1 Home oxygen delivery device: nasal cannula Concentrator: Yes E-tanks for mobility and back up: Yes If ordering portable O2, is the patient mobile in the home?: Yes I certify that, based on these findings, the home oxygen is medically necessary for this patient for the following length of time. Length of time home oxygen needed: 99 years
--- NOTE | 2019-01-05 13:52 | PDDCSUM ---
Discharge Summary Discharge Summary: Dates of service 01/02-01/05/29 Consultations: cardiology Procedures performed: echocardiogram, right/left sided heart cath Hospital course by problem: 88 yo F w dilated CMP, MR sCHF: new finding non ischemic carvedilol, lasix, lisinopril started at dc--will f/u with cardiology for ongoing med management MR: per echo report, appears to be related to LV as opposed to valve itself will verify w cardiology asthma: continue home meds proph: lmwh code: dnr dc home f/u with cardiology as scheduled in coming week >35 min spent in dc of patient more than half in coordination of care
--- NOTE | 2019-01-05 15:07 | ASMTCMCOM ---
CM Note CM Note Notes: Pts case discussed in tx rounds and CM spoke to MICHAEL Medina. Pt does not have any d/c needs. OT has cleared pt. Pt had a heart cath. CM available for changes. Plan: Independent Date Signed: 01/05/2019 03:06 PM Electronically Signed By:JULIA Altman
--- NOTE | 2019-01-05 15:08 | ASMTLACE ---
LACE Length of stay for Answers: 3 days current admission Acuity / Level of Answers: Yes Care: Did the patient have an inpatient admission? Comorbidities - select Answers: Other Notes: HTN all that apply # of Emergency department Answers: 1-2 visits in the last 6 months Score: 8 Date Signed: 01/05/2019 03:07 PM Electronically Signed By:JULIA Altman
[2019-01-06] MEDS ORDERED: LISINOPRIL 2.5 MG TAB PO SCH (09:00)
== END 2019-01-05 15:35 | disposition home or self-care (01) | DRG 287 ==
LOC: F2W 23:59 → OBSVTOIN 01-03 15:35
PROVIDERS: ADMIT Student in an Organized Health Care Education/Training Program; ATTEND Internal Medicine
PROC: 4A023N8 Measurement of Cardiac Sampling and Pressure, Bilateral, Percutaneous Approach (ICD-10-PCS; principal; 2019-01-04)
PROC: B2151ZZ Fluoroscopy of Left Heart using Low Osmolar Contrast (ICD-10-PCS; principal; 2019-01-04)
PROC: B2111ZZ Fluoroscopy of Multiple Coronary Arteries using Low Osmolar Contrast (ICD-10-PCS; principal; 2019-01-04)
DX: I50.21 Acute systolic (congestive) heart failure (principal); I27.20 Pulmonary hypertension, unspecified; I34.0 Nonrheumatic mitral (valve) insufficiency; J45.909 Unspecified asthma, uncomplicated; E78.5 Hyperlipidemia, unspecified; M10.9 Gout, unspecified; Z87.891 Personal history of nicotine dependence; Z85.3 Personal history of malignant neoplasm of breast; Z66 Do not resuscitate
CPT/HCPCS: 84484-ER; 97165-GO; 97535-GO; C1760; C1769; G0378; J1644; J1650; J1940; J2250; J3010; Q9967

== ENCOUNTER → 2019-02-15 | Outpatient (CLI) | payer OTHER, MEDICARE | LOC: BHFA 15:30 | PROVIDERS: ATTEND Internal Medicine Cardiovascular Disease | DX: I34.0 Nonrheumatic mitral (valve) insufficiency (principal); I42.9 Cardiomyopathy, unspecified ==